=== PATIENT | female | born 1980 ===

== ENCOUNTER 2018-06-08 19:10 | Inpatient (IN) | payer OTHER ==
[2018-06-08] MEDS ORDERED: MAGNESIUM HYDROXIDE 30 ML UDCUP PO PRN (19:57)
[2018-06-08] MEDS ORDERED: MAG HYDROX/AL HYDROX/SIMETH 30 ML UDCUP PO PRN (19:57)
[2018-06-08] MEDS ORDERED: OLANZapine DISINTEGR 5 MG TAB PO PRN (19:57)
[2018-06-08] MEDS ORDERED: ACETAMINOPHEN 325 MG TAB PO PRN (19:57)
[2018-06-08] MEDS ORDERED: MELATONIN 3 MG TAB PO PRN (20:09)
[2018-06-08] MEDS: LORazepam 0.5 MG TAB PO PRN (20:31)
[2018-06-08] MEDS: DIVALPROEX ER 250 MG TAB PO SCH (20:32)
[2018-06-08] MEDS: FAMOTIDINE 20 MG TAB PO SCH (20:32)
--- NOTE | 2018-06-09 08:21 | ASMTBHMTP ---
Master Treatment Plan Master Treatment Plan Answers: Depressed Mood with for: Suicidal Ideation Date: 06/08/2018 Diagnosis on Admission: Hypotension; Munchausen Syndrome Expected length of stay: 3-5 days Reason for admission: Notes: Transfer from [facility], no admission ppw found.* Patient's stated presenting problems: Notes: I was accused of taking medications when I didn't Patient's goals for treatment: Notes: I don't know Patient's strengths: Notes: I don't know Identify supports outside of hospital: Notes: Live with my parents in [facility] Discharge criteria: Notes: Suicidal Ideation will resolve and patient will have a plan to safely manage recurrent suicidal ideations. Initial disposition plan/considerations: Notes: Return home to [facility] and live with parents. Master Treatment Plan Required Signatures Psychiatrist signature: Answers: Psychiatrist: RN on-shift signature: Answers: RN: Patient signature: Answers: Patient: Date Signed: 06/09/2018 08:20 AM Electronically Signed By:Alexander Stephenson
[2018-06-09] MEDS: POTASSIUM CL 20 MEQ/15 ML UDCUP PO SCH (09:09)
[2018-06-09] MEDS: FAMOTIDINE 20 MG TAB PO SCH ×2 (09:10→20:45)
[2018-06-09] MEDS: LEVOTHYROXINE 25 MCG TAB PO SCH (09:10)
[2018-06-09] MEDS: DIVALPROEX ER 500 MG TAB PO SCH (09:10)
--- NOTE | 2018-06-09 09:47 | GCON ---
[f rep st] CONSULTATION DATE OF CONSULTATION: 06/09/2018 REFERRING PHYSICIAN: Lux Espinosa MD REASON FOR CONSULTATION: Medical evaluation. HISTORY OF PRESENT ILLNESS: A 37-year-old female with history of factitious disorder, gastric ulcers , iron deficiency anemia requiring weekly iron infusions, transferred from [facility] for concern for intentional medication ingestion. She was hospitalized at [facility] on 06/05 after developin g right upper quadrant pain and was diagnosed with pancreatitis. She denies alcohol. She is on Depa kote, which can be etiology. She was noted to be bradycardic and hypotensive, with concern for overd ose of either Zanaflex or metoprolol. Patient adamantly denies taking more than prescribed, and actu ally, her father doles out her medications. On a previous hospitalization in March, she was found unresponsive and intubated, secondary to pne umonia and concern for OD at that time. After discharge, she was admitted to [facility] for 3 days, which she states was a waste of time. Denies suicidal or homicidal ideations. No current bloody stools, diarrhea, fevers, or chills. Endorsed hematemesis on the . Suspect was metoprolol given she was bradycardic and was responding to glucagon. During prior hospit alization, had similar symptoms and required temporary pacer for complete heart block. REVIEW OF SYSTEMS: I completed a 10-point review of system, negative, except in HPI. PAST MEDICAL HISTORY: 1. Gastric ulcer with H pylori negative. 2. Iron deficiency anemia requiring transfusions, last 05/29/2018. 3. Seizure disorder. 4. Thoracic outlet syndrome. 5. Renal insufficiency. 6. Gastroparesis. 7. Migraines. 8. Hypothyroidism. 9. Factitious disorder. PAST SURGICAL HISTORY: Breast lumpectomy, D and C, cholecystectomy, tonsillectomy, wisdom teeth, brittney endectomy, ovarian cyst, uterine fibroid, 2 rib removal for thoracic outlet syndrome. FAMILY HISTORY: Grandmother of breast and pancreatic cancer. Mother with anxiety. SOCIAL HISTORY: Lives in [place]. Was a veterinary medicine doctor for many years, wanted to go to [employer], but had to quit due to seizure disorder. 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 Denies a lcohol, tobacco, or illicits. HOME MEDICATIONS: Maalox, potassium, melatonin, olanzapine 5 to 10 mg q.4 hours p.r.n., milk of magn esia, Lorazepam 0.5 mg q.6 hours p.r.n., levothyroxine 25 mcg daily, Pepcid 20 mg b.i.d., Depakote 50 0 mg daily, 250 at night, Tylenol. ALLERGIES: Codeine, ibuprofen, glucosamine and penicillins. PHYSICAL EXAMINATION: VITAL SIGNS: Temperature 36.8, blood pressure 97/55, heart rate is in the 50s this morning, respirations 16, 97% on room air. GENERAL: Lying in bed in no acute distress, pleasa nt. HEENT: PERRLA. Conjunctival pallor. CV: [place], but regular. No murmurs. LUNGS: Clear. AB DOMEN: Soft, nontender. : No Dorsey. MUSCULOSKELETAL: Has a midline catheter in place. NEURO: 2 through 12 intact. PSYCH: Alert and oriented x3. LABORATORY DATA: No labs reported here. U-tox at [facility] was positive for benzos and opioids. ASSESSMENT/PLAN: 1. Concern for medication overdose: Patient adamantly denies; however, she did improve with glucago n. She has a history of factitious disorder, major depression. She was evaluated by Psychiatry at [facility] and transferred here to [facility] for further treatment. We will defer to psych iatric team. 2. Pancreatitis: Perhaps due to Depakote. Denies alcohol. Is not in pain now. We will check base line labs. 3. Seizure disorder: Continue Depakote. 4. Hypothyroidism: Levothyroxine. 5. Bradycardia: Currently asymptomatic. We will check an EKG. 6. Iron deficiency anemia: Reports negative colonoscopy. Is followed by high reach operator in [place]. Last infusion was yesterday. 7. Diet: Regular. 8. Deep venous thrombosis prophylaxis: Low risk, ambulatory. Thank you for this consultation. We will follow along. Please call if any questions. /[id number]/MODL
[2018-06-09] MEDS: SERTRALINE HCL 25 MG TAB PO SCH (11:34)
--- NOTE | 2018-06-09 17:24 | BAPA ---
[f rep st] ADMISSION PSYCHIATRIC ASSESSMENT DATE OF SERVICE: 06/09/2018 CHIEF COMPLAINT: "I do not need to be here. They took everything out of context." HISTORY OF PRESENT ILLNESS: The patient is a 37-year-old female with a history of some anxiety and depression in the past. She has also had numerous chronic and acute medical problems. She describes a history of having been hospitalized at [facility] for a presumed overdose about a year ago. She describes having been in the ICU and intubated and "in a coma" for 2 weeks at that time. She adamantly denied having done anything to herself , stated that she "felt a little out of it." Prior to this, and then had fallen asleep waking up 2 weeks later. The medical and psychiatric staff at [facility] decided that this was likely an intentional overdose and she was transferred to [facility] where she was treated for 2-3 days before being discharged home. The patient states that "no one talked to me while I was there," stating that she did not see a doctor or anyone and attended 1 group until she was released from the hospital. She states that she was told she had Munchausen syndrome and was directed to psychotherapy. It is noted that I do not have the records from that hospitalization at this time to verify any of this. The patient has signed a release, however, and I will obtain them. She left [facility] on April 30, 2018 and states " I was okay." She continued to see her outpatient team, which consists of psychologistHenry at her primary care physician. She also has a neurologist and a GI doctor all through [facility]. She reports doing well until receiving a schedule blood test on 06/03/2018. She states her liver function tests were elevated at that time and she had some hematemesis. She also states that her blood pressure was labile and hypotensive and that she was referred to the ER by her primary care physician. She then was admitted back to the ICU at [facility] and "accused of overdosing again." The staff at the hospital stated they believed that she took a beta taiwo of some form, though she adamantly denies this. She does admit that she has been treated with both metoprolol and propranolol in the past, but states that she did not have access to nor did she overdosed on either. Notes from [facility] indicate, by Dr. Engle, that they contacted the patient's pharmacy that told them she had gotten a recent dispensation of metoprolol. Patient adamantly denies this, stating that this was some kind of error on the part of the pharmacy. Because of this, they again believe that she took an intentional overdose and placed her on an M1 hold. She asked not to be admitted to [facility] due to previous bad experience and she was transferred to our facility for hospitalization. I visited with the patient today for 60 minutes. She is pleasant and interactive and seemingly forthcoming of information. She adamantly denies taking any overdose at any time in her life. She states that she was hospitalized the 1 previous time at [facility] and now at this time, but denies any history of intentionally harming herself. 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 She states that her neurologist has the results of these tests and is happy to sign a release. She enjoys her therapy with Dr. Montelongo and states that she believes this is going well. She also agrees for me to speak with her. She denies any recent feelings of depression or thoughts of suicide. She states she was recently started on a titration of sertraline, however, which was apparently aimed at depression and anxiety. She wishes to continue that at this time. She states that she is happy to participate in the evaluations but does not believe she needs to be in the hospital very long. She denies any significant dysfunction at this time in appetite, energy, sleep, or activity. She denies any thoughts of suicide. She states that her primary concerns are medical with her chronic seizure disorder, GI complaints, and renal insufficiency. She also states she was recently diagnosed with pancreatitis and possible hepatitis. PAST PSYCHIATRIC HISTORY: Significant for the previous hospitalization at [facility]. She denies any previous suicide attempts or overdoses. She had neuropsych testing approximately a year ago and this is in the custody of her neurologist. She sees Dr. Abdi for psychotherapy and her phone number is [phone]. 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 She has a history of acute kidney failure in 2016, gastric ulcer, gastroparesis, abnormal gastric emptying, gastroesophageal reflux disease, hypokalemia, hypothyroidism, iron-deficiency anemia, migraines, recurrent pneumonia. She has a significant past surgical history as well with 3 surgeries on her right ankle following an accident with a fracture, as well as a nerve impingement she states she received by being in a coma, appendectomy , breast lumpectomy, cholecystectomy, colonoscopy, D and C, hysteroscopy, knee surgery, rib surgery, having extra cervical ribs removed, tonsillectomy, multiple endoscopies. SOCIAL HISTORY: The patient is single and lives with her parents. She states that "I lived off and on for the past 13 years between my parents and my sister. " She states this is due to needing to be supervised because of her epilepsy. She grew up in [place], [place], and received a degree in biology from [employer]. 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 She works part-time at [employer], however, and states that she enjoys this. She states that she has "lots of seizures" at her work, but that her coworkers are very accommodating. 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 She reports a good relationship with her parents and 1 younger sister. She enjoys reading, writing, and studying medical information online. She also makes jewelry. She enjoys spending time with the family's dogs and cats. Her mother is a teacher and her father is an director of cardiac rehabilitation. SUBSTANCE ABUSE HISTORY: Patient denies any substance use. FAMILY HISTORY: Noncontributory. ADMISSION LABORATORY: Pending at the time of this dictation. Labs from [facility] are reviewed including an EKG report from 06/05/18 that shows a QTc of 397, QRS of 110, with a regular ventricular rate of 43. Her chemistries were normal. CBC showed a white count up at 15.7, H and H was normal. No MCV is reported. Urine drug screen is positive for opiates and benzodiazepines. Chest x-ray was normal. MENTAL STATUS EXAMINATION: Reveals a thin though healthy-appearing female. She is pleasant, cooperative and interacts well with the examiner. Her affect is euthymic stable and appropriate. She describes her mood as "just fine." Her thought process is linear and goal directed. Her thought content reveals no evidence of psychosis. She is alert and oriented to person, place, time, and situation, and her sensorium is clear. Her intellect appears to be average to above average as evidenced by her educational and occupational histories fund of knowledge, and vocabulary. She repeatedly denies any thoughts of suicide stating that she has never taken an intentional overdose and has no desire to . She states "I just want to live." Her insight and judgment appear to be good. IMPRESSION: Unspecified depressive disorder. Multiple medical issues including epilepsy and migraines, possible Munchausen syndrome. Recent hepatitis and pancreatitis, recent coma with protracted ICU hospitalization, etiology unknown. The patient is a pleasant 37-year-old female with a somewhat odd history of this 1 year of multiple sudden life-threatening medical issues. The [facility] staff has determined that this represents a Munchausen syndrome and a factitious disorder though I believe the latter is ruled out by her lack of recognition of the problem. She does not seem to be creating this per se for secondary gain and has no specific problem that she is promoting. She has numerous chronic low-grade medical conditions and some more serious conditions that could possibly be u.s. representative of a somatic disorder of some type. She denies this as well. She presents today as very intact, pleasant, cooperative and displays an euthymic and stable affect. There is no evidence of psychosis on my evaluation today. I need to obtain significant collateral information and will do so. PLAN: 1. Admit to the [facility] inpatient unit on an M1 hold. 2. Continue current medications including the sertraline at 25 mg. 3. Obtain collateral information from the patient's outpatient providers including Dr. Abdi, [facility], possibly Dr. Engle and [facility]. I would also like to speak with her family and will contact them. She has given me the number for her father Nile and states that he is the most accessible. His cell phone is [phone]. 4. We will provide serial clinical interviews and observations in the milieu to better understand her underlying diagnosis. ESTIMATED LENGTH OF STAY: 3-5 days. /[id number]/MODL MTDD
[2018-06-09] MEDS: DIVALPROEX ER 250 MG TAB PO SCH (17:55)
[2018-06-09] MEDS: LORazepam 0.5 MG TAB PO PRN (21:05)
--- NOTE | 2018-06-10 07:20 | PDMN ---
Medical Necessity Medical necessity: [facility] [id number] Major Depressive D/O, Adult Inpatient Care, 3 days : 37 yo w/ unspecified depressive d/o in setting of multi medical issues including epilepsy and migrains, possible Munchausen syndrome, recent hepatitis and pancreatitis, recent coma w/ protracted ICU w/ protracted ICU hospitalization, etiology unknown. M1 hold
[2018-06-10] MEDS: POTASSIUM CL 20 MEQ/15 ML UDCUP PO SCH (08:47)
[2018-06-10] MEDS: DIVALPROEX ER 500 MG TAB PO SCH (08:47)
[2018-06-10] MEDS: SERTRALINE HCL 25 MG TAB PO SCH (08:47)
[2018-06-10] MEDS: FAMOTIDINE 20 MG TAB PO SCH ×2 (08:47→20:28)
[2018-06-10 09:45] LABS: PLATELET COUNT 228 10^3/uL (150-400)
[2018-06-10] MEDS: LEVOTHYROXINE 25 MCG TAB PO SCH (10:21)
--- NOTE | 2018-06-10 14:08 | ASMTCMCOM ---
CM Note CM Note Notes: Ct. reported that she is feeling good and has a good mood. Ct. denied SI or ever making suicide attempt. Ct. slept 7.5 hrs. and shows no sign of psychosis. She is pleasant and cooperative on the unit and agreed to a family meeting with [facility]. She also agreed to see a psychiatrist in the community and reported that she is on a wait list for an appointment. Date Signed: 06/10/2018 02:07 PM Electronically Signed By:Nereyda Kahn
--- NOTE | 2018-06-10 16:36 | SOAPPROG ---
SOAP Progress Note Assessment/Plan: Assessment: Plan: Subjective: Pt seen, discussed with staff, interviewed in Treatment Team meeting. She remains cheerful and engaged - at least superficially. Discussed the plan for the evaluation and here and the need to obtain additional information. She is agreeable to this. I spoke with her father this morning and left a message for her therapist. Pt's father reports that she has been "sick" since she was a child. She missed school frequently with physical issues such as stomach aches. She continued to c/o frequent illnesses, but none that were debilitating until 2005. It was then that her fiance broke off the relationship with her and she was rejected from veterinary school. Shortly after this, she had her first seizure and then became progressively more disabled rather quickly after that. I asked him about her history of unexplained medical illnesses that others are describing as intentional overdoses and he states she has lied about medication use in the past. 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 She repeatedly denied using this drug and then ultimately was caught somehow and admitted to taking up to 30 at a time. This was reportedly 8 years ago. He also reports getting a package from [place] while she was in the hospital recently that contained Lasix. She denied any knowledge of it despite the fact that the package was in her name. This could explain her history of "renal insufficiency" and hypokalemia. Father is open to family meeting tomorrow also. Objective: Vital Signs Temp Pulse Resp BP Pulse Ox 36.6 C 63 15 108/51 L 96 06/10/18 06:00 06/10/18 06:00 06/10/18 06:00 06/10/18 06:00 06/10/18 06:00 Laboratory Results 06/10/18 06:03 06/10/18 06:03 MSE: Cheerful, calm, pleasant, interactive. Affect is euthymic, stable, approp. Mood is "good." TP is linear. TC reveals no psychosis. Denies SI/HI/ . - Time Spent With Patient Time Spent With Patient: 45" ICD10 Worksheet Patient Problems: Problems Problem Status Onset Unspecified Depressive Disorder Acute
[2018-06-10] MEDS: DIVALPROEX ER 250 MG TAB PO SCH (20:28)
[2018-06-10] MEDS: LORazepam 0.5 MG TAB PO PRN (20:28)
[2018-06-11 06:49] VITALS: BP 100/50
[2018-06-11] MEDS: DIVALPROEX ER 500 MG TAB PO SCH (08:48)
[2018-06-11] MEDS: POTASSIUM CL 20 MEQ/15 ML UDCUP PO SCH (08:48)
[2018-06-11] MEDS: FAMOTIDINE 20 MG TAB PO SCH (08:48)
[2018-06-11] MEDS: LEVOTHYROXINE 25 MCG TAB PO SCH (08:48)
[2018-06-11] MEDS: SERTRALINE HCL 25 MG TAB PO SCH (08:48)
--- NOTE | 2018-06-29 14:44 | BDS ---
[f rep st] BEHAVIORAL HEALTH DISCHARGE SUMMARY REASON FOR ADMISSION: Patient is a 37-year-old female who was transferred to our facility from [facility]. She has a history of multiple medical issues, including several acute m ental status changes that have left her in comas. She has recently been hospitalized at [facility] following one of these incidents. She has been evaluated twice in the past calendar year by the ps ychiatrist at [facility], who stated that they believed that she was suffering from a Krzysztof chausen syndrome . There were numerous pieces of information to indicate that she was taking intenti onal overdoses causing her to be in the hospital, though she adamantly denied this. On this occasion prior to being transferred to us, she was re-evaluated by the psychiatrist, Dr. 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 Patient had previously been hospitalized at [facility] in [facility] and stated that she preferred to be placed elsewhere. The care staff then contacted our facility to request transfer per patient's wishes. A full description of the events preceding admission can b e found in her admission history dated 06/09/2018. 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 ADMITTING PHYSICAL EXAMINATION: Performed by Dr. Samia Miller showed numerous chronic medical illn esses with no acute findings. ADMISSION LABORATORY: The patient had a full complement of labs at the outside facility, though labs were read redrawn here showing an H and H down at 10.2 and 30.7 respectively, with MCV high at 101.3 . Potassium was low at 3.4. ALT was up at 54, alkaline phosphatase was up at 176. TSH was normal a t 2.9. HOSPITAL COURSE: Patient was admitted to the behavioral health services inpatient unit on an M1 hold . She was pleasant and interactive, and was seemingly forthcoming of information. She discussed thi s history of many chronic health conditions, primarily the epilepsy that kept her from being able to work or be self-sufficient. She saw the series of events that led to several life-threatening medica l conditions, such as the one recently as completely enigmatic and unexplained, and adamantly denied repeatedly that she had any role in this. 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 I discussed with her that our role and her care was to evaluate and try to determine w ines we believed to the diagnosis of Munchausen or factitious illness versus some other underlying psychiatric condition. She was agreeable to this and was agreeable with having her family involved. Patient participated in serial clinical interviews and we did not add additional medications. She jefferson d recently been started on sertraline 25 mg and this was continued. I did not see the basis of her a dmission being an acute depressive illness, however, after working with her for some time. She was c ontinued on her Depakote, which she took for her epilepsy and was prescribed Zyprexa on a p.r.n. basi s, though she did not take this. We were able to arrange a family meeting with her father and this was helpful. The patient's hold wa s expiring at that time, and we met with the patient's father, the patient, myself, and care [facility] to determine a course of action. Patient was bright and stated that she had no thoughts of suici de, again dismissing the idea that she would have done this to herself. Her father did provide information that she had previously abused tramadol, which she had gotten from a order administrator under the auspices of treating pain in their horses. He states that she denied this also until she was finally caught. He also states that she has been chronically hypokalemic, and jovan t while she was admitted to the hospital this last time, she got a delivery from a pharmacy in [facility] with [place]. She adamantly denied knowing anything about this and could not explain why she would hav e gotten medication in the mail that would be harmful to her that was not prescribed to her that coul d mimic some of her physical symptoms. She simply said that it was a coincidence and not under her c ontrol. We did, however , arrive that both patient and her father felt like this was not an emergent issue at that time. They both agreed to individual and family psychotherapy, and the patient agreed to look at the patterns of use of her medications. The father stated that he would again to try to help manage her medications more closely, though if, in fact, she is obtained from alternate sources out of the country, this would obviously be difficult. The patient reiterated her lack of acute suic idality. I did leave messages for the patient's outpatient psychotherapist, Dr. Abdi, and worked with the nurse healthcare manager to try to establish an outpatient medication provider for the patient. CONDITION AT DISCHARGE: Stable. Her affect was euthymic, stable, and appropriate, and she was voici ng no thoughts of suicide. DISCHARGE MEDICATIONS: Depakote ER 500 daily and 250 mg h.s., Pepcid 20 mg b.i.d., Synthroid 25 mcg daily. It is of note that she has also been prescribed potassium 40 mEq b.i.d. for chronic hypokalem ia, but if she is not taking the Lasix, I doubt she will need that. The way the discharge medication sheet reads is that she was also discharged on all of her p.r.n.'s, which is inadvertent. This incl udes the Zyprexa, milk of magnesia, lorazepam, acetaminophen, melatonin, and magnesium hydroxide, sim ethicone antiacid, anti-gas. Patient was also instructed to continue to take sertraline at 25 mg terrance ly per her request. 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 DISPOSITION: Patient left the hospital with her father's return to parent's home. ATTITUDE AT TIME OF DISCHARGE: Patient at the time discharge was positive and happy. LEGAL COURSE: Patient was discharged at the expiration of her M1 hold. LABORATORY OR STUDIES: There were no labs or studies pending at the time of discharge. CODE STATUS: Patient was full code throughout her stay. SCREENINGS: Patient was administered nicotine, alcohol, cannabis, and metabolic screenings and no fu rther action was indicated. /[id number]/MODL
== END 2018-06-11 17:27 | disposition home or self-care (01) | DRG 883 ==
LOC: BBEH 19:10
PROVIDERS: ADMIT Psychiatry & Neurology Psychiatry; ATTEND Psychiatry & Neurology Psychiatry
DX: F68.10 Factitious disorder imposed on self, unspecified (principal); F32.9 Major depressive disorder, single episode, unspecified; D50.9 Iron deficiency anemia, unspecified; G40.909 Epilepsy, unspecified, not intractable, without status epilepticus; Z87.19 Personal history of other diseases of the digestive system; E03.9 Hypothyroidism, unspecified